=== PATIENT | male | born 1965 | race Caucasian/White ===

== ENCOUNTER → 2018-02-07 | Outpatient (CLI) | payer OTHER ==
[~2018-02-07] MED LIST: AMOXICILLIN 50500 M1 PO; B-50 COMPLEX1 EAC1 PO; CENTRUM TABLET1 EACH PO; DEXILANT60 MG PO; DIABETA PO; FISH OIL 1,0001 EAC5 PO; LISINOPRIL10 MG PO; PERCOCET 7.5-31 EACH PO; PHENERGAN25 MG RE
== END ==
LOC: HYPER 01-25 14:29
DX: S01.81XA Laceration without foreign body of other part of head, initial encounter (principal); S80.12XA Contusion of left lower leg, initial encounter; E11.9 Type 2 diabetes mellitus without complications; E78.5 Hyperlipidemia, unspecified; L84 Corns and callosities; I48.91 Unspecified atrial fibrillation; I10 Essential (primary) hypertension; M48.00 Spinal stenosis, site unspecified; F41.9 Anxiety disorder, unspecified; F32.9 Major depressive disorder, single episode, unspecified; Z86.718 Personal history of other venous thrombosis and embolism; V49.49XA Driver injured in collision with other motor vehicles in traffic accident, initial encounter; Y93.89 Activity, other specified; Y92.89 Other specified places as the place of occurrence of the external cause; Y99.8 Other external cause status

== ENCOUNTER → 2018-02-21 | Outpatient (CLI) | payer OTHER | LOC: HYPER 06:48 | DX: S01.81XD Laceration without foreign body of other part of head, subsequent encounter (principal); S81.802D Unspecified open wound, left lower leg, subsequent encounter; L84 Corns and callosities; E11.9 Type 2 diabetes mellitus without complications; E78.5 Hyperlipidemia, unspecified; I48.91 Unspecified atrial fibrillation; I10 Essential (primary) hypertension; M48.00 Spinal stenosis, site unspecified; F32.9 Major depressive disorder, single episode, unspecified; F41.9 Anxiety disorder, unspecified; Z86.718 Personal history of other venous thrombosis and embolism; X58.XXXD Exposure to other specified factors, subsequent encounter ==

== ENCOUNTER → 2018-03-15 | Outpatient (CLI) | payer OTHER | LOC: HYPER 07:01 | DX: S01.81XD Laceration without foreign body of other part of head, subsequent encounter (principal); S80.11XD Contusion of right lower leg, subsequent encounter; L84 Corns and callosities; E78.5 Hyperlipidemia, unspecified; E11.9 Type 2 diabetes mellitus without complications; I48.91 Unspecified atrial fibrillation; I10 Essential (primary) hypertension; M48.00 Spinal stenosis, site unspecified; F41.9 Anxiety disorder, unspecified; F32.9 Major depressive disorder, single episode, unspecified; Z86.718 Personal history of other venous thrombosis and embolism; V49.49XD Driver injured in collision with other motor vehicles in traffic accident, subsequent encounter ==

== ENCOUNTER → 2018-03-30 | Outpatient (CLI) | payer OTHER | LOC: HYPER 07:38 | DX: S01.00XD Unspecified open wound of scalp, subsequent encounter (principal); S81.802D Unspecified open wound, left lower leg, subsequent encounter; E11.9 Type 2 diabetes mellitus without complications; I48.91 Unspecified atrial fibrillation; I10 Essential (primary) hypertension; E78.5 Hyperlipidemia, unspecified; M48.00 Spinal stenosis, site unspecified; F41.9 Anxiety disorder, unspecified; F32.9 Major depressive disorder, single episode, unspecified; Z86.718 Personal history of other venous thrombosis and embolism; X58.XXXD Exposure to other specified factors, subsequent encounter ==

== ENCOUNTER → 2018-04-12 | Outpatient (CLI) | payer OTHER | LOC: HYPER 06:55 | DX: S01.81XD Laceration without foreign body of other part of head, subsequent encounter (principal); S80.11XD Contusion of right lower leg, subsequent encounter; L84 Corns and callosities; E11.9 Type 2 diabetes mellitus without complications; E78.5 Hyperlipidemia, unspecified; I48.91 Unspecified atrial fibrillation; I10 Essential (primary) hypertension; M48.00 Spinal stenosis, site unspecified; F41.9 Anxiety disorder, unspecified; F32.9 Major depressive disorder, single episode, unspecified; Z86.718 Personal history of other venous thrombosis and embolism; V49.49XD Driver injured in collision with other motor vehicles in traffic accident, subsequent encounter ==

== ENCOUNTER → 2018-04-26 | Outpatient (CLI) | payer OTHER | LOC: HYPER 06:41 | DX: S01.81XD Laceration without foreign body of other part of head, subsequent encounter (principal); E11.9 Type 2 diabetes mellitus without complications; I10 Essential (primary) hypertension; L84 Corns and callosities; I48.91 Unspecified atrial fibrillation; E78.5 Hyperlipidemia, unspecified; M48.00 Spinal stenosis, site unspecified; F41.9 Anxiety disorder, unspecified; F32.9 Major depressive disorder, single episode, unspecified; Z86.718 Personal history of other venous thrombosis and embolism; V49.49XD Driver injured in collision with other motor vehicles in traffic accident, subsequent encounter ==

== ENCOUNTER 2018-11-28 05:29 | Inpatient (IN) | payer OTHER ==
[2018-11-14 08:55] LABS: URINE BILIRUBIN NEGATIVE (Negative); URINE BLOOD NEGATIVE (Negative); URINE CLARITY CLEAR; URINE COLOR YELLOW; URINE GLUCOSE-RANDOM* 3+ (Negative); URINE KETONES NEGATIVE (Negative); URINE LEUKOCYTES-REFLEX NEGATIVE (Negative); URINE NITRITE-REFLEX NEGATIVE (Negative); URINE PROTEIN (DIPSTICK) NEGATIVE (Negative); URINE SPECIFIC GRAVITY 1.025 (1.005-1.035); URINE UROBILINOGEN 0.2 E.U./dl (0.2-1.0)
[2018-11-14 08:56] LABS: HEMATOCRIT 44.3 % (42.0-52.0); HEMOGLOBIN 14.9 gm/dL (14.0-18.0); MCH 30.8 pg (26.0-34.0); MCHC 33.6 g/dL (28.0-37.0); MCV 91.8 fL (80.0-100.0); RBC 4.82 mil/uL (4.50-6.00); RDW 13.5 % (10.5-14.5); WBC 9.3 thou/uL (4.0-11.0)
[2018-11-14 09:03] LABS: ALBUMIN 4.2 g/dL (3.4-5.0); CALCIUM 9.6 mg/dL (8.5-10.1); CREATININE 0.8 mg/dL (0.7-1.3); POTASSIUM 4.6 mmol/L (3.5-5.1)
[2018-11-14 09:25] LABS: PROTIME 10.5 Seconds (9.3-11.4)
[2018-11-15 01:06] LABS: GLYCOHEMOGLOBIN (HGB A1C) 7.6 % (4.8-5.6)
[~2018-11-28] VITALS: Ht 195.6 cm; Wt 149.7 kg
[~2018-11-28 05:29] MED LIST changes: +CARDIZEM CD240 MG PO; +CYMBALTA60 MG PO; +DEMADEX20 MG PO; +FLEXERIL PO; +FLOMAX0.4 MG PO; +FLONASE 0.05%50 MCG NASAL; +GLIMEPIRIDE4 MG PO; +JARDIANCE25 MG PO; +METFORMIN HCL500 M2 PO; +NEURONTIN300 MG PO; +PERCOCET 10-321 EACH PO; +TAMBOCOR 100 M100 M1 PO; +TRADJENTA5 MG; +TYLENOL EXTRA500 MG PO; +XARELTO20 MG PO; +ZETIA10 MG PO
[2018-11-28 12:12] VITALS: BP 127/73
[2018-11-29 03:52] VITALS: BP 115/70
--- NOTE | 2018-11-29 05:23 | NUR ---
PT arrived on unit approx 1999 from OR. A/OX4,oriented to the room and unit.VSS. Pt has an abductor between legs,apparently had dislocated the hip after surgery and it was replaced. ANAHI dsg in place on left thigh C/D/I,ice packs provided per request. Medicated per EMAR with partial relief reported. IVF infusing via R hand without problems,voiding adequately per urinal. Resting quietly with BPAP on hooked to the oxygen with no distress noted.Fall precautions in place, will continue to monitor.
[2018-11-29 06:31] LABS: HEMATOCRIT 38.3 % (42.0-52.0); HEMOGLOBIN 12.5 gm/dL (14.0-18.0); MCH 30.2 pg (26.0-34.0); MCHC 32.7 g/dL (28.0-37.0); MCV 92.3 fL (80.0-100.0); RBC 4.15 mil/uL (4.50-6.00); RDW 13.4 % (10.5-14.5); WBC 16.4 thou/uL (4.0-11.0)
[2018-11-29 08:12] VITALS: BP 113/65
--- NOTE | 2018-11-29 16:37 | NUR ---
Met with patient and at bedside. Patient admits with LANDRY. Tenative plan for outpatient therapy but may need HH. If need for HH he prefers [facility]. Patient and reside in basement apt. Apt has entrance with no steps and can use a cart to entrance per . 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 He plans to order a commonde for himself. Requested bariatric walker with Melo Lau who will inquire in am. Casemgt following for dc planning.
[2018-11-29 19:33] VITALS: BP 126/67
--- NOTE | 2018-11-29 19:40 | NUR ---
Assumed care of pt at 0700. Pt a&ox4. Lt hip dressing intact. Abductor pillow in place. SCD's and JOHNNA hose in place. Worked with PT/OT today. Pt states he felt a pop in the hip. Provider aware. X-ray ordered. Pain controlled with prn pain meds. Call light within reach. Report given to олег michele.
--- NOTE | 2018-11-30 01:59 | NUR ---
PATIENT AOX4 MAKES NEEDS KNOWN.PATIENT LEFT HIP DRESSING IS C/D/I. PATIENT HAS ABD PILLOW BETWEEN HIS LEGS. PAIN CONTROLLED THIS SHIFT. PATIENT HAS C PAP TONIGHT. PATIENT IN BED ASLEEP AT THIS TIME BREATHING REGULAR AND UNLABOURED.
[2018-11-30 03:22] VITALS: BP 119/67
[2018-11-30 05:13] LABS: HEMATOCRIT 40.3 % (42.0-52.0); HEMOGLOBIN 13.3 gm/dL (14.0-18.0); MCH 30.8 pg (26.0-34.0); MCV 93.3 fL (80.0-100.0); RBC 4.32 mil/uL (4.50-6.00); RDW 13.8 % (10.5-14.5); WBC 13.7 thou/uL (4.0-11.0)
[2018-11-30 07:35] VITALS: BP 128/63
--- NOTE | 2018-11-30 11:48 | NUR ---
DISCHARGE PLANNING. ANTICIPATED DISCHARGE TODAY. HOME HEALTH RECOMMENDED AT DISCHARGE. REFERRAL FAXED TO [facility] FOR [facility]IENTS HH NEEDS. CALL PLACED TO [facility] TO NOTIFY. FOLLOWING.
[2018-11-30 13:55] VITALS: BP 127/68
--- NOTE | 2018-11-30 15:14 | NUR ---
PATIENT CARE WAS ASSUMED AT 0715.PATIENT IS ALERT AND ORIENTED X4.PATIENT HAS BEEN HAING ISSUES WITH HIS HIP AFTER SURGERY.PT STATES THAT IT FEELS LIKE IT IF "CLICKING" IN AND OUT OF PLACE WHEN HE WALKS.PT WALKS X1 ASSIST, WITH WALKER.PT'S PAIN HAS BEEN BETWEEN 6-8/10.PATIENT HAS BEEN GIVEN PAIN MEDS PRN WHEN REQUESTED.PT HAS CALL LIGHT,PHONE, AND PERSONAL BELONGINGS WITHIN REACH.
--- NOTE | 2018-11-30 15:29 | O ---
[facility] [place] [address] OPERATIVE REPORT Name: MINNIE CHERRY Room #: 455-P ADM IN M.R.#: [id number] Admission: 11/28/18 Attend Phys: Dayday Leonard MD Discharge: Date of : 69 Report #: [id number] THIS REPORT FOR: //name// CC: Merle Leonard DATE OF SERVICE: 11/28/2018 PREOPERATIVE DIAGNOSIS: Left hip osteoarthritis. POSTOPERATIVE DIAGNOSIS: Left hip osteoarthritis. PROCEDURE: Left total hip arthroplasty. SURGEON: Dayday Leonard MD. STRUCTURAL STEEL WORKER HELPER: Xuan Duckworth PA-C. INDICATIONS FOR STRUCTURAL STEEL WORKER HELPER: Throughout the case extensive retraction and manipulation of the hip was required including dislocation and reduction. This was afforded to me by my records management assistant. ANESTHESIA: General endotracheal. IMPLANTS: Morse [employer]hew size 60 R3 acetabular cup with 1 acetabular screw, a size 13 high offset Synergy press-fit stem and a size 40 +8 Oxinium head. ESTIMATED BLOOD LOSS: 100 mL. COMPLICATIONS: There was a postoperative hip subluxation in the recovery room that required IV sedation and reduction. CONDITION UPON LEAVING THE OPERATING ROOM: Stable. INDICATIONS FOR PROCEDURE: The patient is a 53-year-old gentleman with left hip osteoarthritis. He had failed conservative measures for this and after discussion with him, he elected for total hip arthroplasty. DESCRIPTION OF PROCEDURE: Risks, benefits, alternatives, complications were discussed in detail with the patient including but not limited to risk of anesthesia, risk of damage to nerves, arteries, blood vessels, risk for infection, bleeding, risk for continued hip pain, leg length discrepancy, instability and need for reoperation. Informed consent was obtained from the patient. Left hip was appropriately marked in the preoperative holding area. IV Ancef was given for preoperative antibiotics. He was brought to the operating room and placed in supine position on operating room table. [address] [address] OPERATIVE REPORT Name: MINNIE CHERRY SHAAN Room #: 455-P [facility] IN M.R.#: [id number] Admission: 11/28/18 Attend Phys: Dayday Leonard MD Discharge: Date of : 69 Report #: [id number] endotracheal anesthesia was induced without complication. He was then placed in the right lateral decubitus position with the left hip uppermost. Left hip and lower extremity were then prepped and draped in normal sterile fashion. Timeout was performed properly identifying the patient and procedure as well as the instrumentation. All in the operating room were in agreement. Standard posterior approach to the hip was made with 10 blade through the skin. Dissection was taken down the fascia with Bovie cautery. Tanner elevator was used to clean off the fascia. Fresh 10 blade was used to make a fascial incision. This was taken proximally and distally with curved Jenkins scissor. Charnley retractor was placed. Trochanteric bursa was taken down with Bovie cautery. Piriformis tendon was identified, tagged and taken down with Bovie. Short external rotators were also taken down with Bovie cautery. Capsulotomy was made and capsule ends were tagged for later repair. Hip was dislocated and there was [id number] osteoarthritic change of the femoral head. Femoral neck cut was made 1-cm proximal to lesser trochanter based on preoperative templating. The femoral head was removed. Deep acetabular retractors were placed. Labrum was removed sharply. Pulvinar was removed with Bovie cautery. Acetabulum was then sequentially reamed up to a size 60, at which point, there was excellent bleeding cancellous bone. This was trialed with a size 59 trial and found to have a good fit. A final size 60 R3 acetabular cup was then placed and seated. One acetabular screw was placed for backup fixation and the polyethylene liner for a 40 head was placed. Attention was then turned to the femur. This was reamed and broached up to a size 13, at which point, the size 13 broach was stable, was trialed with a 40 +0 head. Hip was reduced, taken through range of motion, found to be somewhat stable posteriorly and to be short. It was felt we could make up for this with the final implant. Hip was dislocated. The broach was removed and a final size 13 high offset Synergy press-fit stem was placed. This was then trialed with a 40 +8 head. Hip was reduced, taken through range of motion, found to be stable, found to have equal leg lengths. Hip was dislocated, trial head was removed and final size 40 +8 Oxinium head was placed. Hip was reduced, taken through range of motion, found to be stable, found to have equal leg lengths. Wound was thoroughly irrigated with normal saline. Periarticular injection consisting of morphine, ropivacaine, epinephrine and Toradol was placed around the hip joint capsule. A gram of vancomycin was placed deep in the capsule. The capsule and piriformis were repaired with 0 FiberWire. Fascia was closed with 0 Vicryl, skin was closed with 2-0 Vicryl, 3-0 Monocryl. Dermabond and a ANAHI dressing was applied. The patient tolerated this procedure well and went to the recovery room under care of anesthesia postoperatively. In the recovery room, postoperative x-rays demonstrated subluxation of the femoral head from the socket and IV sedation was given by Anesthesia. This was reduced with a palpable reduction. Post-reduction x-rays [facility] [address] [place] [address] OPERATIVE REPORT Name: MINNIE CHERRY Room #: 455-P ADM IN M.R.#: [id number] Admission: 11/28/18 Attend Phys: Dayday Leonard MD Discharge: Date of : 69 Report #: [id number] were taken and found to have concentric reduction of the hip joint. Abduction pillow was placed. He tolerated this procedure well. <ELECTRONICALLY SIGNED> By: Dayday Leonard MD 11/30/18 1529 1811 194 Dayday Leonard MD /nt
--- NOTE | 2018-11-30 16:18 | NUR ---
REFERRAL HAD BEEN SENT TO [facility] AND THEY AREN'T IN NETWORK WIHT PT'S [facility] PLAN. CM NOTIFIED THAT [facility] ARE IN NETWORK. CM MET WITH PT AND WITH CARE TEAM AND IT HAD BEEN INDICATED THAT PT IS HAVING POPING OF HIP AND INCREASED PAIN. ORTHO ARE TO DO A REVISION. CM PROVIDED PT A LIST OF IN NETWORK SKILLED FACILITIES TO REVIEW SHOULD HE NEED THEM UPON DC. CM TO FOLLOW INIDCATED WITH DC PLANNING. PT WILL BE HERE OVER WEEKEND.
[2018-11-30 20:22] VITALS: BP 146/74
[2018-12-01] VITALS (7 sets, daily range): BP systolic 114–125; BP diastolic 52–60
--- NOTE | 2018-12-01 04:06 | NUR ---
ASSUMED CARE AROUND 1900. AXOX4. L HIP DRESSING CDI. WAS ON AUTOMATION CONTROL INTEGRATOR MOPRHINE PUMP. C/O SEVERE NAUSEA. INFFECTIVE RELIEF WITH ZOFRAN OR REGLAN. REQUESTED DILAUDID. CALLED AUTOMATED CUTTING MACHINE OPERATOR FOR AND OBTAINED ORDERS TO D/C AUTOMATION CONTROL INTEGRATOR AND START PT ON DILAUDID. PT REPORTS ADEQUATE RELIEF. 2ND IV PLACED TO LFA. C/O SEVERE CONSTIPATION. GAVE ALL PRN LAXATIVES. EARLY AM HAD VERY LARGE FORMED BM. NO S/S ACUTE DISTRESS NOTED OR REPORTED AT THIS TIME. WILL CONT TO MONITOR FOR ANY CHANGES IN CONDITION.
[2018-12-01 05:46] LABS: MCHC 33.5 g/dL (28.0-37.0); MCV 92.8 fL (80.0-100.0); RBC 4.2 mil/uL (4.50-6.00); RDW 13.3 % (10.5-14.5); WBC 9.3 thou/uL (4.0-11.0)
--- NOTE | 2018-12-01 15:51 | NUR ---
Assumed pt care this am, pt was on NPO for left hip revision, was taken at around 8:15 am. Pt came back pot op aroubnd 12:30 pm, pt was placed back on a regular diet, left hip Kris dressing dry and intact. Pt is to wear a CPAP at all times with the exclusion of when he eats and needs to speak, on 5 liters of O2, Pain managed with medication, poc followed and vs stable. Will monitor for signs of distress as of now the pt is sleeping.
[2018-12-02 04:30] VITALS: BP 132/65
--- NOTE | 2018-12-02 04:46 | NUR ---
ASSUMED CARE AROUND 0. AXOX4. L HIP ANAHI DRESSING C,D,I. VSS. CPAP AT ALL TIMES WITH CONTINOUS PULSED OX MONITORING. NO S/S ACUTE DISTRESS NOTED OR REPORTED AT THIS TIME. NO S/S ACUTE DISTRESS NOTED OR REPORTED AT THIS TIME. WILL CONT TO MONITOR FOR ANY CHANGES IN CONDITION.
[2018-12-02 05:17] LABS: HEMATOCRIT 35.6 % (42.0-52.0); HEMOGLOBIN 11.9 gm/dL (14.0-18.0); MCH 30.9 pg (26.0-34.0); MCHC 33.4 g/dL (28.0-37.0); MCV 92.7 fL (80.0-100.0); RBC 3.85 mil/uL (4.50-6.00); RDW 13.3 % (10.5-14.5)
[2018-12-02 08:22] VITALS: BP 115/51
--- NOTE | 2018-12-02 18:30 | NUR ---
PT ASSESSED AT START OF SHIFT. WORKED W/ THERAPY AND AMBULATED DOWN THE SHIRLEY AND DID WELL. PT STATING IT DID NOT FEEL BAD. UP IN CHAIR AND BATHED. C/O SOME MORE CONSTIPATION SO TOOK SENNA. PAIN MEDS WORKING WELL.
[2018-12-02 19:43] VITALS: BP 125/65
--- NOTE | 2018-12-03 04:57 | NUR ---
PATIENT ALERT AND ORIENTED X4. C/O PAIN, MED GIVEN. DRESSING ON L HIP. ACCUCHECK WAS 168, 3 UNITS LISPRO INSULIN GIVEN. O2 AT 4L AND CPAP. AROUND 0430 BEGAN TO HAVE CHEST PAIN AND SOA. RR CALLED. SEE SUPERVISORS NOTE FOR DETAILS.
--- NOTE | 2018-12-03 05:29 | NUR ---
INTERNET NETWORK SPECIALIST ACTIVATED FOR SOA AND CP. PT C/O MIDSTERNAL CP, 11/24. ALSO STATES SOA WITH MILD DYSPNEA WHILE TALKING NOTED. O2 UP TO 8L FROM INITIALLY STARTING THE NIGHT AT 2L. O2 SATS STAYING IN UPPER 80S DESPITE INCREASED O2. LOG ROLLER CALLED AND UPDATED ON PATIENT STATUS WITH ORDERS RECEIVED. PT TO CT FOR CTPE PROTOCOL AND THEN TX TO CCT. SEE RAPID RESPONSE DOCUMENTATION FOR MORE DETAILS.
[2018-12-03 06:10] VITALS: BP 132/63
[2018-12-03 07:00] LABS: HEMATOCRIT 34.7 % (42.0-52.0); HEMOGLOBIN 11.5 gm/dL (14.0-18.0); MCH 30.4 pg (26.0-34.0); MCHC 33.1 g/dL (28.0-37.0); RBC 3.77 mil/uL (4.50-6.00); RDW 13.1 % (10.5-14.5); WBC 6.4 thou/uL (4.0-11.0)
[2018-12-03 07:17] LABS: ALBUMIN 2.7 g/dL (3.4-5.0); CALCIUM 8.7 mg/dL (8.5-10.1); CREATININE 0.7 mg/dL (0.7-1.3); POTASSIUM 3.5 mmol/L (3.5-5.1); TOTAL BILIRUBIN 0.8 mg/dL (<0.1-1.0); TOTAL PROTEIN 6.5 g/dL (6.4-8.2); TROPONIN-I 0.31 ng/mL (<0.06)
--- NOTE | 2018-12-03 08:03 | NUR ---
pt arrived from CT post DOT NET DEVELOPER on 4W, pt on 10L/hfc sating 88% increased o2 back to 15L and sats came back to 92%, pt getting soa when talking, assisted pt with urinal and bedpan, called José Leo with CT results see new orders, vss, explained CT results to PT and new orders that we would be implementing, report given to next shift to con't with ppoc.
[2018-12-03 08:32] LABS: INR 1.1; PROTIME 11.5 Seconds (9.3-11.4)
--- NOTE | 2018-12-03 09:50 | 2DMMODE ---
[facility] [place] [address] 2 D/M-MODE ECHOCARDIOGRAM Name: CHERRYMINNIE Room #: 360-P [facility] IN .R.#: [id number] Admission: 11/28/18 Attend Phys: Dayday Leonard, Discharge: Date of : 69 Date of Service: 12/03/18 0950 Report #: [id number] THIS REPORT FOR: //name// APPROVED REPORT Study performed: 12/03/2018 09:06:14 EXAM: Comprehensive 2D, Doppler, and color-flow Echocardiogram Patient Location: Bedside Room #: 360 Status: routine BSA: 2.71 HR: 105 bpm BP: 132/63 mmHg Rhythm: Tachycardia Other Information Study Quality: Adequate Indications Pulmonary Embolism Pulmonary Hypertension Diabetes Atrial Fibrillation Hypertension/HDD 2D Dimensions RVDd: 56.17 mm IVSd: 11.29 (7-11mm) LVOT Diam: 23.98 (18-24mm) LVDd: 44.31 mm PWd: 11.43 (7-11mm) Ascending Ao: 37.34 (22-36mm) LVDs: 23.03 (25-40mm) Aortic Root: 33.80 mm IVC: 24.00 mm Volumes Left Atrial Volume (Systole) Single Plane 4CH: 42.91 mL Single Plane 2CH: 46.57 mL LA ESV Index: 19.00 mL/m2 Aortic Valve AoV Peak Rohan.: 1.62 m/s AO Peak Gr.: 10.54 mmHg LVOT Max P.05 mmHg LVOT Max V: 1.23 m/s NICKIE Vmax: 3.42 cm2 [facility] [address] [address] 2 D/M-MODE ECHOCARDIOGRAM Name: MINNIE CHERRY Room #: 360-P [facility] IN .R.#: [id number] Admission: 11/28/18 Attend Phys: Dayday Leonard, Discharge: Date of : 69 Date of Service: 12/03/18 0950 Report #: [id number] Pulmonary Valve PV Peak Rohan.: 1.06 m/s PV Peak Gr.: 4.52 mmHg Tricuspid Valve TR Peak Rohan.: 3.13 m/s TR Peak Gr.: 39.18 mmHg PA Pressure: 54.00 mmHg Left Ventricle The left ventricle is normal size. Flattened septum consistent with right ventricular volume and pressure overload. There is normal left ventricular wall thickness. Left ventricular systolic function is hyperdynamic. LVEF is >70%. This study is not technically sufficient to allow evaluation of the LV diastolic function. Right Ventricle Right ventricle is dilated. Right ventricle is hypokinetic. Atria The left atrium size is normal. Right atrium is dilated. Aortic Valve The aortic valve is normal in structure. No aortic regurgitation is present. There is no aortic valvular stenosis. Mitral Valve The mitral valve is normal in structure. There is no mitral valve regurgitation noted. No evidence of mitral valve stenosis. Tricuspid Valve The tricuspid valve is normal in structure. There is mild tricuspid regurgitation. Estimated PAP 54 mmHg. There is moderate pulmonary hypertension. Pulmonic Valve The pulmonary valve is normal in structure. There is no pulmonic valvular regurgitation. Great Vessels The aortic root is normal in size. The inferior vena cava is dilated with no inspiratory collapse. Pericardium There is no pericardial effusion. [facility] [employer] [place] [address] 2 D/M-MODE ECHOCARDIOGRAM Name: [facility] Room #: 360-[facility] IN M.R.#: [id number] Admission: 11/28/18 Attend Phys: Dayday Leonard, Discharge: Date of : 69 Date of Service: 12/03/1850 Report #: [id number] <Conclusion> Left ventricular systolic function is hyperdynamic. Flattened septum consistent with right ventricular volume and pressure overload. LVEF is >70%. Right ventricle is dilated and hypokinetic Right atrium is dilated. The aortic valve is normal in structure. No aortic regurgitation or stenosis. The mitral valve is normal in structure. No mitral valve regurgitation. There is mild tricuspid regurgitation. Estimated pulmonary artery pressure of 54 mmHg. There is no pericardial effusion. <ELECTRONICALLY SIGNED> By: Hever Spence MD, [facility]GED WITH [facility] 12/03/18 0950 9 Hever Spence MD, [facility] /INF
[2018-12-03 11:24] VITALS: BP 139/85
--- NOTE | 2018-12-03 13:18 | NUR ---
SW reviewed chart and spoke with nursing and attending physician. Pt was transferred to from 4W following SUPERVISOR CAR INSTALLATIONS. Pt left hip revision on Monday, 12/01. Pt with bilateral PE and is on heparin gtt. SW met with pt and family at bedside. Introduced role of SW. Therapy is working with pt. Recommendation made for outpatient or HH. Pt will need a bariatric walker. [facility] to issue walker prior to discharge. SW is following to assist as needed with discharge planning.
[2018-12-03 16:36] VITALS: BP 118/73
[2018-12-03 19:25] VITALS: BP 137/84
--- NOTE | 2018-12-03 20:10 | NUR ---
Assumed care approx. 0700 this AM. Patient on high flow NC at 15 L. Patient required nonrebreather mask most of the day. The patient would occassionally take it off, but desat into the high 80's fairly fast. This RN's concerns were discussed with RT about the patient wearing the nonrebreather mask most of the time, but RT said as long as the patient is oxygenated with the PE then it is fine for now. Heparin gtt started this AM and heparin boluses administered per protocol; patient and family educated. Patient has rated pain a six most of the day, and has slept intermittently with pain medication administration. Patient has been constipated most of the day. Ordered mag citrate administered to the patient in two doses per patient request. The patient still has yet to have a BM. Family at bedside most of the shift. Slow progression toward goals.
--- NOTE | 2018-12-04 01:17 | NUR ---
resting quietly. encouraged turns, denies pain. careplan reviewed. continues on iv heparin, rate adjusted per protocal. maintaining o2 sats greater than 95% with the NRB mask and the HFC. continues on pulse ox.
[2018-12-04 03:55] VITALS: BP 137/77
--- NOTE | 2018-12-04 04:00 | NUR ---
resting quietly. needs some reassurance regarding care and medication. he is cooperative and calm. careplan reviewed. no complaints.
[2018-12-04 06:23] LABS: HEMATOCRIT 34.5 % (42.0-52.0); HEMOGLOBIN 11.7 gm/dL (14.0-18.0); MCH 31.1 pg (26.0-34.0); MCHC 33.9 g/dL (28.0-37.0); MCV 91.5 fL (80.0-100.0); RBC 3.77 mil/uL (4.50-6.00); RDW 13.3 % (10.5-14.5); WBC 9.1 thou/uL (4.0-11.0)
[2018-12-04 07:10] VITALS: BP 134/81
--- NOTE | 2018-12-04 13:35 | NUR ---
SW reviewed chart and spoke with attending physician. Pt is progressing towards goals for discharge. Pt on heparin gtt and will transition to PO Xarelto tomorrow. Plan is for pt to return home when medically stable. Pt will need a bariatric walker at time of discharge. SW notified [facility] liaison. SW is following to assist as needed with discharge planning.
[2018-12-04 16:24] VITALS: BP 105/63
--- NOTE | 2018-12-04 17:14 | EKG ---
[place] [address] [address] [facility] [place] [address] ELECTROCARDIOGRAM REPORT Name: JO ANNMINNIE Room #: 360-P ADM IN M.R.#: [id number] Admission: 11/28/18 Attend Phys: Dayday Leonard MD Discharge: Date of : 69 Report #: [id number] THIS REPORT FOR: //name// [facility] Test Date: 2018-12-03 Test Time: 04:43:49 Pat Name: MINNIE CHERRY Department: Room: 360 Gender: M Director Of Design: sohan : 1965 Requested By: Ashley Leo Order Number: [id number] MD: Hever Spence Measurements Intervals Bennett Rate: 99 P: 0 IA: 144 QRS: -28 QRSD: 117 T: -6 QT: 337 QTc: 433 Interpretive Statements Sinus rhythm Nonspecific intraventricular conduction delay Nonspecific ST and T wave abnormality Compared to ECG 03/16/2010 08:40:48 Nonspecific change in the ST and T-wave segments Electronically Signed On 12-04-2018 17:14:04 CDT by Hever Spence [email or web address] <ELECTRONICALLY SIGNED> By: Hever Spence MD, [facility] 12/04/18 1714 044 2 Hever Spence MD, [facility] /EPI
[2018-12-04 19:14] VITALS: BP 96/57
--- NOTE | 2018-12-04 19:38 | NUR ---
Assumed care approx. 0700 this AM. Patient remains intermittently on 15LNC and cpap machine. Patient has a large BM today. ANAHI dressing intact. Order given to ambulate patient with therapy. Patient walked in room slowly with PT a couple times today. Patient up to chair last half of shift today. Left forearm IV intact with Heparin gtt infusing (see heparin flowsheet for boluses given and rates). Oxycodone given Q4H as needed. Slow progression toward plan of care goals.
--- NOTE | 2018-12-05 00:37 | NUR ---
PT WAS ON THE CHAIR AT SHIFT CHANGE, ASSISTED BACK TO BED, TEDS/SCDS/ABDUCTOR WEDGE IN PLACE, URINAL WITHIN REACHED, LOW BP TONIGHT, HELD OFF CARDIZEM, IS BEING MONITORED CLOSELY DUE TO HX OF AFIB, STILL ON 15 L PER NC, CPAP AT HS, CONTINUE ON HEPARIN GTT, NEXT LAB APTT IS 0120, WILL FOLLOW UP CLOSELY, DRESSING IS ANAHI, CDI, MONITORED FOR BLEEDING, NO SOB NOTED, ENC. IS USE, NO NAUSEA NOTED, ICE PACK TO HIPS, HOURLY ROUNDING, MONITORED.
--- NOTE | 2018-12-05 03:10 | NUR ---
aptt still not therapeutic at 48.1, bolus as ordered, 4,491 units and rate increased to 32.98 ml/hr. next aptt is at 0907.
[2018-12-05 04:24] VITALS: BP 114/62
[2018-12-05 07:54] VITALS: BP 119/71
--- NOTE | 2018-12-05 12:26 | NUR ---
SW reviewed chart and spoke with nursing and attending physician. Pt is progressing towards goals for discharge. Discharge home is anticipated for tomorrow. Pt will need services at time of discharge. Per 4W SW, pt had requested referral to be sent to [facility]. urban planner to fax referral. Pt has bariatric walker. Pt will be started on PO Xarelto. MYCHAL is following to assist as needed with discharge planning.
[2018-12-05 15:55] VITALS: BP 112/58
[2018-12-05 19:06] VITALS: BP 161/87
[2018-12-05 19:47] VITALS: BP 111/62
--- NOTE | 2018-12-05 20:17 | NUR ---
Assumed care approx. 0700 this AM. Patient administered oxycodone when needed and tylenol once as pain control has been tough. Patient noted to be trying hard with therapy. 15LNC titrated to 12LNC at shift change, and patient seemed to be tolerating well. Heparin gtt infusing... bolus given once with a 3 ml/hr increase in gtt per protocol (see heparin gtt flowsheet). Progression is being made toward plan of care.
[2018-12-06 03:38] VITALS: BP 135/76
[2018-12-06 05:33] LABS: HEMOGLOBIN 11.1 gm/dL (14.0-18.0); MCH 30.6 pg (26.0-34.0); MCHC 33.6 g/dL (28.0-37.0); MCV 91.2 fL (80.0-100.0); RBC 3.61 mil/uL (4.50-6.00); RDW 13.1 % (10.5-14.5); WBC 9.1 thou/uL (4.0-11.0)
--- NOTE | 2018-12-06 06:33 | NUR ---
PT MAKING SLOW PROGRESS TOWARDS GOALS. O2 AT 12L PER NC. PT USING OWN BIPAP OVERNIGHT WITH NASAL MASK. PT UNABLE TO KEEP HIS MOUTH CLOSED WHEN ASLEEP. DID CALL RT, SWITCH PT TO HOSPITAL BIPAP AND FULL FACE MASK. THIS WAS EXPLAINED TO PT WHEN HE AWOKE.
[2018-12-06 07:35] VITALS: BP 124/70
[2018-12-06 10:54] LABS: BE(vivo) 7.3 mmol/L (-2 to +3); HCO3 32.5 mmol/L (22.0-26.0); PCO2 48.4 mmHg (35.0-45.0); PO2 65.5 mmHg (80.0-100.0); pH 7.445 (7.360-7.450); sO2 93.4 % (92.0-98.0)
[2018-12-06] MEDS ORDERED: ALBUTEROL2.5 MG/0.5 INH (13:14)
[2018-12-06] MEDS ORDERED: AMBIEN 5 MG TABL5 M1 PO (13:14)
[2018-12-06] MEDS ORDERED: TUMS PO (13:14)
--- NOTE | 2018-12-06 13:35 | NUR ---
Nutrition: Pt assessed d/t LOS. Admitted for L total hip arthroplasty (surgery back on 11/28). Pt has been unavailable x 3 today - with other disciplines on 2 occasions, out of room the other. Note new orders for discharge today. He has been on a regular diet, eating very well. Consuming 75-90% of majority of meals in recent days. Recent BM 12/04. With planned discharge today, no new nutrition interventions added. Low nutrition risk.
[2018-12-06 14:20] VITALS: BP 124/70
--- NOTE | 2018-12-06 14:20 | NUR ---
DISCHARGE NOTE: MYCHAL reviewed chart and spoke with nursing and attending physician. Pt started on Xarelto and is medically stable for discharge home today. Rest/exercise oximetry ordered to evaluate pt for home O2 needs. Pt currently on 4L continuously. MYCHAL met with pt and family at bedside to discuss discharge. Pt has bariatric walker at bedside. SW discussed need for home O2 and provided options for DME companies. Pt agreeable with [facility], who provided his walker. SW explained need to qualify for home O2 and set up. Pt's gets off work at 1630 and will be providing transportation home. Awaiting rest/exercise oximetry. SW notified [facility] liaison. Checking to see if pt has a qualifying dx for Home O2. MYCHAL is following to finalize discharge.
[2018-12-06 16:23] VITALS: BP 125/64
--- NOTE | 2018-12-06 19:49 | NUR ---
ASSUMED PATIENT CARE AT 0700. TITRATED O2 TO 4L/NC AT 1200. UP AMBULATED IN HALLWAY. NEEDS 6L WHEN WALK. PAIN MEDS GIVEN NEED. DC TO HOME WITH AT 1930.
--- NOTE | 2018-12-12 12:23 | O ---
[facility] [place] [address] OPERATIVE REPORT Name: MINNIE CHERRY Room #: 360-[facility] IN M.R.#: [id number] Admission: 11/28/18 Attend Phys: Dayday Leonard MD Discharge: 12/06/18 Date of : 69 Report #: [id number] THIS REPORT FOR: //name// CC: Merle ManciniBerkley Leonard DATE OF SERVICE: 12/01/2018 PREOPERATIVE DIAGNOSIS: Left total hip arthroplasty instability. POSTOPERATIVE DIAGNOSIS: Left total hip arthroplasty instability. PROCEDURE: Revision left total hip arthroplasty including the femoral stem and the polyethylene component. SURGEON: Dayday Leonard MD. YOUTH CARE SPECIALIST: Cindy Ring. ANESTHESIA: General endotracheal. IMPLANTS: [employer] size 15 high offset Synergy press-fit stem with a +4 20-degree lateralized liner and a 36+8 Oxinium head. ESTIMATED BLOOD LOSS: 50 mL. COMPLICATIONS: None. SPECIMENS: None. CONDITION UPON LEAVING THE OPERATING ROOM: Stable. INDICATIONS FOR PROCEDURE: The patient is a 53-year-old gentleman who had a left total hip arthroplasty done on 11/28/2018. Postoperatively, he had subluxation of his arthroplasty that was reduced in the recovery room on the date of surgery. Over the past 2 days, he has had physical therapy and has had a recurrent painful click in his hip that presumably is recurrent subluxation of the hip. In addition, clinically, he felt short on his left compared to the right and it was felt that his hip was unstable and was contributing to his pain and popping. After discussion with him and his , they elected for revision hip arthroplasty to lengthen his neck length in order to gain stability. DESCRIPTION OF PROCEDURE: Risks, benefits, alternatives, complications were discussed in detail with the patient including but not limited to risk of anesthesia, risk of damage to nerves, arteries, blood vessels, risk for infection, bleeding, risk for continued pain, infection, leg length discrepancy, [facility] [address] [place] [address] OPERATIVE REPORT Name: MINNIE CHERRY [place] Room #: [facility] IN M.R.#: [id number] Admission: 11/28/18 Attend Phys: Dayday Leonard MD Discharge: 12/06/18 Date of : 69 Report #: [id number] dislocation and need for reoperation. Informed consent was obtained from the patient. The left hip was appropriately marked in the preoperative holding area. He was brought to the operating room and placed in the supine position on the operating room table. General anesthesia was induced without complication. IV Ancef was given for preoperative antibiotics. His leg lengths were then checked and was found to be at least 2 cm short on the left compared to the right and passively, there was significant vertical instability of the hip joint. He was then placed in the right lateral decubitus position with the left hip uppermost. Left hip and lower extremity were prepped and draped in normal sterile fashion. Timeout was performed properly identifying the patient and procedure as well as the instrumentation and implants. All in the operating room were in agreement. The previous incision was used and this was opened with a 10 blade. The dissection was taken down to the fascia and the fascial incision was opened with a 10 blade. Charnley retractor was placed. Hip was dislocated and the femoral head and stem were removed. The acetabular component was then evaluated and the polyethylene was seated in the socket. This was then removed and a +4 lateralized liner was then placed in the acetabulum. The femur was then reamed and broached up to a size 15, which was 2 stem size was larger than the previous and this was then trialed with a 36+8 head. Hip was reduced, taken through range of motion, found to be stable, and found to be slightly short on the left compared to the right and this was then trialed with a +12, 36 head. Hip was reduced, taken through range of motion, found to be stable, found to have equal leg lengths. Hip was dislocated. The broach was removed. The trial liner was removed and +4 lateralized 20-degree posterior lip liner was placed for a 36 head and acetabulum. The size 15 high offset Synergy press-fit stem was then placed. This did not seat as far as the broach and was about 4 mm proud, which we felt was acceptable. This was then trialed with a 36+8 head. Hip was reduced, taken through range of motion, found to be stable, found to have equal leg lengths. Hip was dislocated, one last time and a final size 36+8 Oxinium head was placed. Hip was reduced, taken through range of motion, found to be stable, found to have equal leg lengths. Hip was thoroughly irrigated with normal saline. A gram of vancomycin was placed deep in the joint. Capsule was repaired with 0 FiberWire. Fascia was closed with 0 Vicryl, skin was closed with 2-0 Vicryl, skin ludmila and a ANAHI dressing was applied. The patient tolerated this procedure well and went to recovery room under the care of anesthesia postoperatively. <ELECTRONICALLY SIGNED> By: Dayday Leonard MD 12/12/18 [id number] [id number] Dayday Leonard MD /nt
== END 2018-12-06 19:28 | disposition home health service (06) | DRG 469 ==
LOC: PRE 05:29 → TBA 10:32 → 4W 10:32 → PRE 12:11 → 4W 20:16 → 3W 12-03 05:42 → ENTRNSPT 12-06 18:07 → 3W 12-06 19:28
PROVIDERS: Hospitalist; Internal Medicine; ADMIT Orthopaedic Surgery
PROC: 0SRB06A Replacement of Left Hip Joint with Oxidized Zirconium on Polyethylene Synthetic Substitute, Uncemented, Open Approach (ICD-10-PCS; principal; 2018-11-28)
PROC: 0SWB09Z Revision of Liner in Left Hip Joint, Open Approach (ICD-10-PCS; 2018-12-01)
PROC: 5A09357 Assistance with Respiratory Ventilation, Less than 24 Consecutive Hours, Continuous Positive Airway Pressure (ICD-10-PCS; 2018-12-02)
PROC: 5A09357 Assistance with Respiratory Ventilation, Less than 24 Consecutive Hours, Continuous Positive Airway Pressure (ICD-10-PCS; 2018-12-05)
DX: M16.52 Unilateral post-traumatic osteoarthritis, left hip (principal); J96.01 Acute respiratory failure with hypoxia; I26.92 Saddle embolus of pulmonary artery without acute cor pulmonale; T84.021A Dislocation of internal left hip prosthesis, initial encounter; I10 Essential (primary) hypertension; E78.5 Hyperlipidemia, unspecified; I48.2 Chronic atrial fibrillation; F41.9 Anxiety disorder, unspecified; F32.9 Major depressive disorder, single episode, unspecified; E66.9 Obesity, unspecified; M54.2 Cervicalgia; M54.9 Dorsalgia, unspecified; K59.00 Constipation, unspecified; G47.33 Obstructive sleep apnea (adult) (pediatric); N40.0 Benign prostatic hyperplasia without lower urinary tract symptoms; I50.810 Right heart failure, unspecified; G89.4 Chronic pain syndrome; E11.42 Type 2 diabetes mellitus with diabetic polyneuropathy; Z86.14 Personal history of Methicillin resistant Staphylococcus aureus infection; Z68.39 Body mass index [BMI] 39.0-39.9, adult; Z88.8 Allergy status to other drugs, medicaments and biological substances; Z86.718 Personal history of other venous thrombosis and embolism; Y83.8 Other surgical procedures as the cause of abnormal reaction of the patient, or of later complication, without mention of misadventure at the time of the procedure; Y92.89 Other specified places as the place of occurrence of the external cause
CPT/HCPCS: 10047; 10779; 10879; 50010; 50101; 50382; 50414; 51412; 51771; 53000; 53078; 53368; 54118; 55389; 56524; 56527; 56528; 56530; 57095; 57103; 62110; 62900; 65130; 65131; 70005